=== PATIENT | male | born 1970 | race Caucasian/White ===

== ENCOUNTER 2018-01-08 09:43 | Emergency (ER) | payer MEDICARE ==
[~2018-01-08] VITALS: Ht 177.8 cm; Wt 77.1 kg
--- OUTSIDE RECORDS SUMMARY | 2018-01-08 09:44 | XMS REPORT | Continuity of Care Document ---
Author Author [facility] Address Unknown Phone Unavailable Problems Problem Status Onset Date Classification Date Reported Comments Source Low back pain 04/23/2017 07/24/2017 [facility] M54.5 Active 04/17/2017 [facility] Cervicalgia 07/24/2017 [facility] Pain in left knee 07/24/2017 [facility] LOW BACK PAIN Active [facility] Medications Medication Details Route Status Patient Instructions Ordering Provider Order Date Source Allergies, Adverse Reactions, Alerts Substance Category Reaction Severity Reaction type Status Date Reported Comments Source nkfa Assertion Propensity to adverse reactions to substance Active [facility] Immunizations Immunization Date Given Site Status Last Updated Comments Source Results Order Name Results Value Reference Range Date Interpretation Comments Source Spine cervical series DX Spine cervical series DX PROCEDURE: Cervical spine series radiographs, total 5 views. AP, bilateral oblique, lateral, odontoid views. INDICATION: M54.2 Cervicalgia. Neck pain and back pain. COMPARISON: None. FINDINGS: Moderate degenerative disc disease at C3-C4 level. There is irregularity of the endplates with sclerosis. Slightly prominent anterior endplate osteophytes with minimal posterior endplate osteophytes at this level. Multilevel small bilateral uncovertebral osteophytes between C3-C7 levels with mild to moderate bony foraminal narrowing. This is most prominent in the mid cervical spine, left side between C4-C5 and C5-C6 levels. Bilateral facets appear unremarkable. Soft tissue outlines appear normal. IMPRESSION: 1. Multilevel degenerative changes. Multilevel bilateral uncovertebral osteophytes with foraminal narrowing. If clinically indicated, consider noncontrast magnetic resonance imaging cervical spine. SL: [id number] 04/17/2017 - - Read by: Ayden Tellez MD Dictated Date/time: 04/17/17 12:18 Electronically Signed by: Ayden Tellez MD 04/17/17 12:20 FINAL REPORT [facility] Spine lumbar series DX Spine lumbar series DX PROCEDURE: Lumbar spine series radiographs. Total 5 views an 6 images. AP, bilateral oblique, lateral, spot lumbar sacral lateral views. INDICATION: M54.5 Low back pain COMPARISON: None. FINDINGS: 5 nonrib-bearing lumbar-type vertebra are present. Normal alignment of the lumbar spine. No spondylolysis or spondylolisthesis. Moderate degenerative disc disease in the lumbar sacral junction with disc space narrowing, endplate sclerosis and osteophytes. Moderate to large anterior endplate osteophytes with smaller posterior endplate osteophytes at this level. Remainder of the disc spaces appear unremarkable. Sclerosis, osteophytes, degenerative changes involve the facet articulations of the lumbar sacral spine bilaterally. This appears mild. Facet articulations are otherwise unremarkable. No acute bony abnormality. Surrounding bony and soft tissues appear otherwise unremarkable. IMPRESSION: 1. No acute abnormality identified. 2. Mild to moderate degenerative changes in the lumbar sacral junction. SL: [id number] 04/17/2017 - - Read by: Ayden Tellez MD Dictated Date/time: 04/17/17 12:23 Electronically Signed by: Ayden Tellez MD 04/17/17 12:25 FINAL REPORT [facility] Knee 4+ views unilateral DX Knee 4+ views unilateral DX PROCEDURE: Left knee series radiographs, 4 images. AP, oblique and lateral views. Total 3 views. INDICATION: M25.562 Pain in left knee COMPARISON: None. FINDINGS: Degenerative changes identified in the medial and lateral compartments. There is severe narrowing of the medial compartment with adjacent irregularity, sclerosis and osteophytes. Chondrocalcinosis in the lateral compartment with smaller osteophytes and less sclerosis. Multiple punctate clustered densities mostly overlie the medial right knee compatible with foreign bodies. This may be related to chronic injury. Minimal chondrocalcinosis in the medial compartment as well. Bone density is heterogeneous and decreased. Articular surface of the patella is irregular. No acute bony fracture or d islocation. No definite joint effusion. Soft tissues are otherwise unremarkable. IMPRESSION: 1. Tricompartmental degenerative changes in the left knee which appear most severe in the medial compartment. 2. No acute bony abnormality identified. 3. Multiple punctate radiopaque foreign bodies mostly overlying the medial aspect of the left knee. SL: [id number] 04/17/2017 - - Read by: Ayden Tellez MD Dictated Date/time: 04/17/17 12:20 Electronically Signed by: Ayden Tellez MD 04/17/17 12:23 FINAL REPORT [facility] Vital Signs Vital Sign Value Date Comments Source Encounters Location Location Details Encounter Type Encounter Number Reason For Visit Attending Provider ADM Date DC Date Status Source [facility] Outpatient [id number] Basem Hamid 04/17/2017 04/18/2017 [facility] Procedures Procedure Code Date Perfomer Comments Source
--- OUTSIDE RECORDS SUMMARY | 2018-01-08 09:44 | XMS REPORT ---
Author Author [facility] Address Unknown Phone Unavailable Care Team Providers Care Certified Personal Finance Counselor Name Role Phone Unavailable Unavailable Payers Payer Name Policy Type Policy Number Effective Date Expiration Date Problems This patient has no known problems. Allergies, Adverse Reactions, Alerts Allergy Name Allergy Type Status Severity Reaction(s) Onset Date Inactive Date Treating Clinician Comments No Known Allergies DA Active U 2018-01-03 00:00:00 No Known Drug Intolerances DA Active U 2011-05-25 00:00:00 Medications This patient has no known medications.
--- OUTSIDE RECORDS SUMMARY | 2018-01-08 09:44 | XMS REPORT | Summary of Care ---
Author Author [facility] Organization [facility] Address Unknown Phone Unavailable Encounter HQ Encntr_alias(FIN) [id number] Date(s): 04/17/17 - 04/17/17 [facility] [address] [place] [address]- Encounter Diagnosis Low back pain (Final) - 04/22/17 Cervicalgia (Final) - Pain in left knee (Final) - Discharge Disposition: Home or Self Care Attending Physician: Stephanie Carter MD Admitting Physician: Stephanie Carter MD Vital Signs No data available for this section Problem List No data available for this section Allergies, Adverse Reactions, Alerts Substance Reaction Severity Status nkda Active nkfa Active Medications No data available for this section Results No data available for this section Immunizations No data available for this section Procedures No data available for this section Social History Social History Type Response Assessment and Plan No data available for this section
== END 2018-01-08 10:15 | disposition home or self-care (01) ==
LOC: ER 09:43
DX: B37.49 Other urogenital candidiasis (principal); Z87.891 Personal history of nicotine dependence
CPT/HCPCS: 99282